=== PATIENT | female | born 1970 | race Caucasian/White ===

== ENCOUNTER 2020-06-25 13:50 | Emergency (ER) | payer OTHER, SELFPAY ==
[2020-06-25 14:15] VITALS: BP 151/97; PULSE 109; RESP 14; TEMP 38.9; O2SAT 97; BMI 45.7
--- NOTE | 2020-06-25 14:42 | HMH.EDUTC ---
[facility] [place] Disposition Clinical Impression: COVID-19 virus test result unknown, Upper respiratory infection, viral Disposition: Home, Self-Care Condition on Discharge: Good Instructions: Preventing the Spread of Coronavirus Discharge Instructions, DI for COVID-19 (Suspected or Confirmed ), DI for Viral Upper Respiratory Infection -- Adult Additional Instructions: increase fluids tylenol or motrin for pain or fever if symptoms worsen return or be seen in ed follow up with pcp this week Referrals: PCP,No [Primary Care Provider] - Time of Disposition: 14:50 Medical Decision Making - Armand Inquiry Pt receiving controlled substance: No Vital Signs: 06/25/20 14:15 Temperature 102.0 F H Temperature Source Oral Pulse Rate [Right Brachial] 109 H Respiratory Rate 14 Blood Pressure [Right Arm] 151/97 H Blood Pressure Mean [Right Arm] 115 Blood Pressure Source [Right Arm] Automatic Cuff Blood Pressure Position [Right Arm] Sitting 02 Sat by Pulse Oximetry 97 Oxygen Delivery Method Room Air Orders (Tests/Meds): ORDERS Category Date Time Status Covid-19 Nasal PCR ([facility]) Routine Lab 06/25/20 14:10 Received [facility] [place] HPI - General Chief complaint: Urgent Treatment Center Stated complaint: COVID Test;chills,congestion Time Seen by Provider: 06/25/20 14:45 Mode of Arrival: Ambulatory Source of Information: Patient Limitations: No Limitations Description of Symptoms (Recalled from Triage Doc. by RN): REQUESTING COVID TEST. C/O CHILLS AND CHEST CONGESTION HEENT Symptoms (Recalled from RN notes): No Resp Symptoms (Recalled from RN notes): No Skin Symptoms (Recalled from RN notes): No MS Symptoms (Recalled from RN notes): No Functional Status (Recalled from RN notes): WNL - History of Present Illness Provider Complaint: 49 yr old female presents for cough, congestion, chills and body aches for 2 days. pt states she has been here visiting family from a . husbands father passed from covid. pt states she wants a covid test - Related Data Allergies Allergy/AdvReac Type Severity Reaction Status Date / Time No Known Allergies Allergy Verified 06/25/20 14:37 - Worker's Comp Is this a Worker's Comp case?: No [facility] History - Hepatitis A Screen Drug use history?: No High risk sexual behaviors?: No History of sexually transmitted infection?: No Currently employed?: No Childcare worker?: No Do you have indoor plumbing?: Yes Do you have electricity?: Yes Attestation statement:: This patient has been screened for Hepatitis A risk factors. I have reviewed the patient's past medical history: Yes Medical History: Reports:: Cancer, Diabetes Mellitus Type 2 - Social History Alcohol Intake: never Occupational Status: other ROS Obtained: Yes Systems reviewed as appropriate & no additional complaints - Constitutional Constitutional: Reports system reviewed and no additional complaints, except as docu, Reports body ache, Reports chills, Denies fever(s) - Eyes Eyes: Reports system reviewed and no additional complaints, except as docu, Denies blurry vision - ENT Ears, Nose, Mouth, and Throat: Reports system reviewed and no additional complaints, except as docu, Reports nasal congestion, Denies sore throat - Cardiovascular Cardiovascular: Reports system reviewed and no additional complaints, except as docu, Denies chest pain at rest - Respiratory Respiratory: Reports system reviewed and no additional complaints, except as docu, Denies change in phlegm color - Gastrointestinal Gastrointestingal: Reports: system reviewed and no additional complaints, except as docu. Denies: belching - Genitourinary Female Genitourinary: Reports system reviewed and no additional complaints, except as docu - Musculoskeletal Musculoskeletal: Reports system reviewed and no additional complaints, except as docu, Denies joint pain - Integumentary/Breasts Skin/Breast: Reports system reviewed and no additional complaints, except
[2020-06-25 14:55] VITALS: BP 151/97; PULSE 109; RESP 14; TEMP 38.8; O2SAT 97
== END 2020-06-25 15:00 | disposition home or self-care (01) ==
PROVIDERS: Emergency Provider Nurse Practitioner Family
DX: Z20.822 Contact with and (suspected) exposure to COVID-19 (principal); J06.9 Acute upper respiratory infection, unspecified; E11.9 Type 2 diabetes mellitus without complications
CPT/HCPCS: 99202; G0463; U0003